=== PATIENT | male | born 1955 | race Caucasian/White ===

== ENCOUNTER 2017-02-26 13:32 | Emergency (ER) | payer OTHER ==
[~2017-02-26] VITALS: Ht 180.3 cm; Wt 104.3 kg
--- NOTE | 2017-02-26 15:20 | ED GI/GU/ABDOMINAL COMPLAINT ---
History of Present Illness General Chief Complaint: Male Genitourinary Problems Stated Complaint: "SWOLLEN, PAINFUL TESTICLES" X2DAYS Source: patient Exam Limitations: no limitations Vital Signs & Intake/Output Vital Signs & Intake/Output Vital Signs Date Time Temp Pulse Resp B/P B/P Pulse O2 O2 Flow FiO2 Mean Ox Delivery Rate 02/26 1612 98.5 94 18 140/67 97 Room Air 02/26 1424 Room Air 02/26 1337 97.8 98 20 126/71 96 Room Air Allergies Coded Allergies: No Known Allergies (02/26/17) Reconcile Medications Augmentin (Augmentin 500-125 Tablet) 500 MG-125 MG TABLET 1 TAB PO TID INFECTION Diclofenac Sodium 75 MG TABLET.DR 1 TAB PO BID PRN PAIN Triage Note: PT C/O PAINFUL SWOLLEN TESTICLES X 2 DAYS. PT DENIES INJURY BUT STATES FEVER AND CHILLS THE DAY BEFORE IT STARTED Triage Nurses Notes Reviewed? yes Onset: Gradual Duration: day(s):, constant, continues in ED, getting worse Quality/Severity: aching, severe, throbbing Radiation: no radiation Activities at Onset: none HPI: Patient presents for evaluation of scrotal pain with a "boil". Symptoms began gradually about 2 days ago, have been constant since onset and continued here in the emergency department. Patient's pain is getting worse. It was exacerbated by a minor trauma yesterday. Past History Travel History Traveled to [place] past 21 day No Medical History Any Pertinent Medical History? see below for history Surgical History Surgical History: non-contributory Psychosocial History What is your primary language Slovak Tobacco Use: Quit >30 days ago ETOH Use: denies use Illicit Drug Use: denies illicit drug use Family History Hx Contributory? No Review of Systems Review of Systems Constitutional: Reports: no symptoms. EENTM: Reports: no symptoms. Respiratory: Reports: no symptoms. Cardiovascular: Reports: no symptoms. GI: Reports: no symptoms. Genitourinary: Reports: see HPI. Musculoskeletal: Reports: no symptoms. Skin: Reports: no symptoms. Neurological/Psychological: Reports: no symptoms. Hematologic/Endocrine: Reports: no symptoms. Immunologic/Allergic: Reports: no symptoms. All Other Systems: Reviewed and Negative Physical Exam Physical Exam Gastrointestinal: see below Comments: Gen.: Well-nourished, well-developed, no acute respiratory distress. Head: Normocephalic, atraumatic. Eyes: Normal inspection bilaterally Ears: Normal inspection bilaterally Nose: Normal inspection Throat/mouth : Moist mucosa Neck: Supple, full range of motion, no goiter Lungs: Quiet respirations Back: Normal range of motion Abdomen: Soft, nontender, nondistended, normal bowel sounds Genitalia: Induration and soft tissue swelling at the base of the scrotum, testicles normal lie, no palpable hernias Extremities: Normal range of motion grossly, equal radial pulses, no cyanosis clubbing or edema Neurologic: Cranial nerves grossly intact, speech is clear Skin: warm and dry Psychiatric: Calm, cooperative, no apparent delusions or hallucinations Core Measures ACS in differential dx? No Severe Sepsis Present: No Septic Shock Present: No Progress Differential Diagnosis: abscess, cellulitis, cyst, phlegmon Plan of Care: Orders Procedure Date/time Status US-TESTICULAR 02/27 1340 Active Diagnostic Imaging: Discussed w/RAD: Ultrasound. Radiology Impression: PATIENT: TIFFANIE HOYOS JR PRESENT AGE: 61 PATIENT ACCOUNT NO: [id number] : 53 LOCATION: [facility] ORDERING PHYSICIAN: OTONIEL CRONIN MD SERVICE DATE: 02/26/17 EXAM TYPE: US - US-TESTICULAR EXAMINATION: US SCROTUM CLINICAL INFORMATION: 2 day history of small palpable and painful lump in the posterior mid scrotum, evolving from a small "pimple". COMPARISON: None TECHNIQUE: A sonogram of the scrotum was performed assessing iqbal-scale appearance and color Doppler flow. Real-time assessment by the reading radiologist was performed. FINDINGS: PALPABLE LUMP: In region of the patient's palpable lump in the posterior midline of the scrotum, a small superficial hypoechoic cystic area is seen. An underlying sinus tract connects from this region to a complex appearing hypoechoic phlegmonous collection in the deeper soft tissues. There is associated skin thickening and edema noted. Mild hyperemia is also seen. RIGHT: Right testicle measures 4.1 x 2.1 x 3.7 cm, volume 28.2 mL. Parenchymal echotexture is normal. No focal testicular parenchymal lesions are visualized. Normal symmetric intratesticular arterial and venous flow is visualized. Right epididymal head is normal in size. There are tiny epididymal cysts. Small right-sided hydrocele is noted. No varicocele is seen. LEFT: Left testicle measures 4.5 x 2.6 x 3.4 cm, volume 22.6 mL. Parenchymal echotexture is normal. No focal testicular parenchymal lesions are visualized. Normal symmetric intratesticular arterial and venous flow is visualized. Left epididymal head is normal in size. There is a small hydrocele. Enlarged venous structures is seen in the left hemiscrotum, consistent with a borderline varicocele. IMPRESSION: 1. The painful and palpable lump corresponds to a phlegmonous collection in the soft tissues of the posterior inferior midline of the scrotum. Faint draining tract is seen extending up to the skin surface. No drainable fluid collection is seen at this point. Close serial clinical follow-up is recommended. Follow-up scrotal ultrasound post treatment is recommended to document resolution of findings. 2. Normal testicles bilaterally. 3. Small right epididymal head cysts. Epididymides bilaterally otherwise unremarkable. 4. Small bilateral hydroceles. 5. Borderline left varicocele. DICTATED BY: FARIDA HINKLE MD DATE/TIME DICTATED:02/26/171439 [employer]:BRETT DATE/TIME TRANSCRIBED:02/26/171439 CONFIDENTIAL, DO NOT COPY WITHOUT APPROPRIATE AUTHORIZATION. <Electronically signed in Other Vendor System> SIGNED BY: FARIDA HINKLE MD 02/26/17 0538 Initial ED EKG: none Departure Departure Disposition: HOME OR SELF CARE Condition: Stable Clinical Impression Primary Impression: Scrotal cyst Referrals: JASS RASHEED,BECKY Gutierrez (PCP/Family) ALLY CALLAWAY MD Additional Instructions: Augmentin as prescribed. I closed the neck as needed for pain. Follow-up with Dr. Callaway on Wednesday for reevaluation. Please notify your primary care physician of this emergency Department visit and treatment plan. Return if any concerns or sudden worsening. Thank you for choosing the [facility] Emergency Department for your care. It was a pleasure to serve you today. Otoniel Cronin M.D. [facility] Departure Forms: Customer Survey General Discharge Information Prescriptions: Current Visit Scripts Augmentin (Augmentin 500-125 Tablet) 1 TAB PO TID #21 TAB Diclofenac Sodium 1 TAB PO BID PRN PAIN #14 TAB
--- NOTE | 2017-02-26 17:04 | ULTRASOUND REPORT ---
EXAMINATION: US SCROTUM CLINICAL INFORMATION: 2 day history of small palpable and painful lump in the posterior mid scrotum, evolving from a small "pimple". COMPARISON: None TECHNIQUE: A sonogram of the scrotum was performed assessing iqbal-scale appearance and color Doppler flow. Real-time assessment by the reading radiologist was performed. FINDINGS: PALPABLE LUMP: In region of the patient's palpable lump in the posterior midline of the scrotum, a small superficial hypoechoic cystic area is seen. An underlying sinus tract connects from this region to a complex appearing hypoechoic phlegmonous collection in the deeper soft tissues. There is associated skin thickening and edema noted. Mild hyperemia is also seen. RIGHT: Right testicle measures 4.1 x 2.1 x 3.7 cm, volume 28.2 mL. Parenchymal echotexture is normal. No focal testicular parenchymal lesions are visualized. Normal symmetric intratesticular arterial and venous flow is visualized. Right epididymal head is normal in size. There are tiny epididymal cysts. Small right-sided hydrocele is noted. No varicocele is seen. LEFT: Left testicle measures 4.5 x 2.6 x 3.4 cm, volume 22.6 mL. Parenchymal echotexture is normal. No focal testicular parenchymal lesions are visualized. Normal symmetric intratesticular arterial and venous flow is visualized. Left epididymal head is normal in size. There is a small hydrocele. Enlarged venous structures is seen in the left hemiscrotum, consistent with a borderline varicocele. IMPRESSION: 1. The painful and palpable lump corresponds to a phlegmonous collection in the soft tissues of the posterior inferior midline of the scrotum. Faint draining tract is seen extending up to the skin surface. No drainable fluid collection is seen at this point. Close serial clinical follow-up is recommended. Follow-up scrotal ultrasound post treatment is recommended to document resolution of findings. 2. Normal testicles bilaterally. 3. Small right epididymal head cysts. Epididymides bilaterally otherwise unremarkable. 4. Small bilateral hydroceles. 5. Borderline left varicocele.
[2017-02-26] MEDS ORDERED: DICLOFENAC SODI75 M2 PO (18:02)
[2017-02-26] MEDS ORDERED: AUGMENTIN 500-1 EACH PO (18:02)
[2017-02-26 18:11] VITALS: BP 141/67
== END 2017-02-26 18:12 ==
LOC: ERH 13:32
DX: L72.9 Follicular cyst of the skin and subcutaneous tissue, unspecified (principal)

== ENCOUNTER 2017-03-01 12:36 | Inpatient (IN) | payer OTHER ==
[~2017-03-01] VITALS: Ht 180.3 cm; Wt 104.3 kg
[~2017-03-01 12:36] MED LIST: AUGMENTIN 500-1 EACH PO; DICLOFENAC SODI75 M2 PO
--- NOTE | 2017-03-01 12:55 | NUR ---
61 Y/O MALE C/O WORSENING SCROTAL SWELLING AND PAIN. STATES HE WAS EVAL'D IN ED FOR SAME A FEW DAYS AGO AND WAS PRESCRIBED ANTIBIOTIC AND PAIN MEDICATION - HAD ULTRASOUND DONE AND WAS ADVISED TO F/U WITH DR DONG BUT STATES DR DONG UNABLE TO SEE PT FOR 2 WEEKS. PT REPORTS "FIRM GROWTH" UNDER SCROTUM WHICH IS GETTING LARGER. DENIES DRAINAGE. DENIES FEVERS
--- NOTE | 2017-03-01 14:10 | ED GI/GU/ABDOMINAL COMPLAINT ---
History of Present Illness General Chief Complaint: Male Genitourinary Problems Stated Complaint: SCROTAL PAIN Source: patient Exam Limitations: no limitations Vital Signs & Intake/Output Vital Signs & Intake/Output Vital Signs Date Time Temp Pulse Resp B/P B/P Pulse O2 O2 Flow FiO2 Mean Ox Delivery Rate 03/01 1839 98.2 87 14 137/74 96 Room Air 03/01 1539 98.6 89 18 146/70 97 03/01 1251 97.7 98 18 148/83 96 Room Air Allergies Coded Allergies: No Known Allergies (02/26/17) Reconcile Medications Augmentin (Augmentin 500-125 Tablet) 500 MG-125 MG TABLET 1 TAB PO TID INFECTION Diclofenac Sodium 75 MG TABLET. 1 TAB PO BID PRN PAIN Triage Note: 61 Y/O MALE C/O WORSENING SCROTAL SWELLING AND PAIN. STATES HE WAS EVAL'D IN ED FOR SAME A FEW DAYS AGO AND WAS PRESCRIBED ANTIBIOTIC AND PAIN MEDICATION - HAD ULTRASOUND DONE AND WAS ADVISED TO F/U WITH DR DONG BUT STATES DR DONG UNABLE TO SEE PT FOR 2 WEEKS. PT REPORTS "FIRM GROWTH" UNDER SCROTUM WHICH IS GETTING LARGER. DENIES DRAINAGE. DENIES FEVERS Triage Nurses Notes Reviewed? yes HPI: Mr. Henning is a 61 yo m w/ PMH of presentin to the ED for scrotal pain and swelling. Patient states he was seen here on Wednesday for similar symptoms and had an ultrasound performed which showed a collection of fluid within the scrotum. He was prescribed antibiotics with Augmentin and discharged home. Patient states he's been taking Augmentin without any missed doses. The past 24 -36 hours, the swelling has worsened in the scrotal area. He also endorses more pain and firmness underneath the scrotum. Patient states he is unable to get comfortable at night to sleep. Patient's last urinary episode was approximately 30 minutes ago. Patient denies any nausea, vomiting, or diarrhea. Pt endorses generalized fatigue. No changes in bowel/ bladder functions. Past History Travel History Traveled to [place] past 21 day No Medical History Any Pertinent Medical History? see below for history Neurological: NONE EENT: NONE Cardiovascular: NONE Respiratory: NONE Gastrointestinal: NONE Hepatic: NONE Renal: NONE Musculoskeletal: NONE Psychiatric: NONE Endocrine: NONE Blood Disorders: NONE Cancer(s): NONE MENTAL HEALTH WORKER/Reproductive: NONE Other Medical Hx: Hx of DM and HTN when patient was >300 lbs. Been off medications for both for over 1yr now. Surgical History Surgical History: non-contributory Psychosocial History What is your primary language Luxembourgish Tobacco Use: Quit >30 days ago Family History Hx Contributory? No Review of Systems Review of Systems Constitutional: Reports: see HPI. EENTM: Reports: no symptoms. Respiratory: Reports: no symptoms. Cardiovascular: Reports: no symptoms. GI: Reports: no symptoms. Genitourinary: Reports: hesitation, pain. Musculoskeletal: Reports: no symptoms. Skin: Reports: erythema, lumps. Neurological/Psychological: Reports: no symptoms. Hematologic/Endocrine: Reports: no symptoms. Immunologic/Allergic: Reports: no symptoms. All Other Systems: Reviewed and Negative Physical Exam Physical Exam General Appearance: well developed/nourished, no apparent distress, alert, awake , mild distress Head: atraumatic, normal appearance Eyes: Bilateral: normal appearance, PERRL, EOMI, normal inspection. Ears, Nose, Throat, Mouth: hearing grossly normal, moist mucous membrane Neck: normal inspection, supple, full range of motion Respiratory: normal breath sounds, chest non-tender, no respiratory distress Cardiovascular: regular rate/rhythm Gastrointestinal: normal bowel sounds, soft, non-tender, distention Male Genitals: bilateral scrotal tenderness w/ significant swelling. Unable to retract skin to expose urethral meatus. Back: normal inspection, normal range of motion Extremities: normal range of motion Neurologic/Psych: no motor/sensory deficits, awake, alert, oriented x 3, normal mood/affect Skin: warm/dry, rash, erythema to scrotum, penis and suprapubic area. induration to underside of scrotum. Core Measures ACS in differential dx? No Severe Sepsis Present: Yes BC x2: Yes Lactic Acid x2: Yes IV ABX Broad Spectrum: Yes NS/LR Started: Yes Septic Shock Present: No Progress Differential Diagnosis: orchitis, prostatitis, testicular torsion, urethritis, UTI/pyelo, necrotizing fasciitis, cellulitis Plan of Care: Orders Procedure Date/time Status Admit to inpatient 03/01 1841 Active EKG 03/01 1838 Active LACTIC ACID 03/01 1712 Complete CULTURE,URINE 03/01 1412 Active BLOOD CULTURE 03/01 1412 Active URINALYSIS 03/01 1412 Complete LACTIC ACID 03/01 1412 Complete COMPREHENSIVE METABOLIC PANEL 03/01 1412 Complete CBC WITHOUT DIFFERENTIAL 03/01 141 Complete Current Medications Sig/Jayce Start time Last Medication Dose Stop Time Status Admin Ceftazidime 1,000 MG Q12 03/01 1412 UNVr 03/01 (Fortaz) 1450 Laboratory Tests 03/01/17 1822: Lactic Acid 1.1 03/01/17 1540: Urine Color STRAW, Urine Clarity CLEAR, Urine pH 6.0, Ur Specific Baldwin 1.010, Urine Protein TRACE H, Urine Ketones NEG, Urine Nitrite NEG, Urine Bilirubin NEG, Urine Urobilinogen 0.2, Ur Leukocyte Esterase NEG, Ur Microscopic SEDIMENT EXAMINED, Urine RBC 1-3, Urine WBC 3-5 H, Ur Epithelial Cells FEW, Urine Bacteria RARE H, Urine Hemoglobin TRACE-INTACT H, Urine Glucose >=1000 H 03/01/17 1425: Anion Gap 14, Estimated GFR > 60, BUN/Creatinine Ratio 22.0, Glucose 454 H, Lactic Acid 2.8 H, Calcium 8.9, Total Bilirubin 0.6, AST 53, ALT 99 H, Alkaline Phosphatase 163 H, Total Protein 6.7, Albumin 3.4 L, Globulin 3.3, Albumin/Globulin Ratio 1.0 L, CBC w Diff NO MAN DIFF REQ, RBC 4.73, MCV 88.2, MCH 29.8, RDW 13.0, MPV 7.9, Gran % 76.7 H, Lymphocytes % 10.0 L, Monocytes % 9.8 H, Eosinophils % 3.2, Basophils % 0.3, Absolute Granulocytes 5.5, Absolute Lymphocytes 0.7 L, Absolute Monocytes 0.7 H, Absolute Eosinophils 0.2, Absolute Basophils 0, PUBS MCHC 33.7 Microbiology 03/01 1540 URINE ROUT: Urine Culture - RECD 03/01 1440 BLOOD: Blood Culture - RECD 03/01 1425 BLOOD: Blood Culture - RECD 61 yo obese male w/ increasing testicular swelling, redness and pain. She was seen here several days ago for similar complaint. It has worsened. Patient seen initially by Dr. Yair Cronin, who reevaluated the patient today as well. Notable swelling and erythema noted to testis. Concern for necrotizing fasciitis. Bloodwork, including blood cultures and lactic acid, were drawn. Pt noted to be hemodynamically stable. Pt also ordered for broad spectrum Abx ( vanc/ceftaz) and surgical service consulted almost immediately. CT abd pelv ordered to assess for spread of infection/extent. Pt seen by surgical PA who agrees with current plan. CT shows "Abnormal bilateral inguinal, retroperitoneal and breanne hepatis lymph nodes. Differential diagnoses includes lymphoma, inflammatory or infectious etiology. There is nonspecific minimal haziness in abdominal wall lateral to left inguinal canal on the very last image. The scrotum is not in the [id number]. Right lower lobe resolving infiltrate versus atelectasis. Mild constipation. Small hypodense lesion lower pole right kidney. It is too small to correctly characterize." Patient seen by Dr. Ren. Plan to take to the operating room for incision and drainage. Patient will also receive a washout. Surgery will assess in OR for possible necrotizing fasciitis by per Dr. Ren, this is likely a scrotal abscess. Pt received broad spectrum Abx in ED. Pre-op EKG ordered. (ZAC RASHEED,JORGE) Diagnostic Imaging: Viewed by Me: CT Scan. Discussed w/RAD: CT Scan. Radiology Impression: Abnormal bilateral inguinal, retroperitoneal and breanne hepatis lymph nodes. Differential diagnoses includes lymphoma, inflammatory or infectious etiology. There is nonspecific minimal haziness in abdominal wall lateral to left inguinal canal on the very last image. The scrotum is not in the [id number]. Right lower lobe resolving infiltrate versus atelectasis. Mild constipation. Small hypodense lesion lower pole right kidney. It is too small to correctly characterize. Initial ED EKG: normal axis, normal intervals, normal p-waves, normal sinus rhythm Departure Departure Time of Disposition: 1803 Disposition: STILL A PATIENT Condition: Stable Clinical Impression Primary Impression: Scrotal abscess Secondary Impressions: Pelvic cellulitis Referrals: JASS RASHEED,BECKY Gutierrez (PCP/Family) Departure Forms: Customer Survey General Discharge Information Admission Note Spoke With: NOMAN RASHEED,LUIS Thurman Documentation of Exam: Documentation of any treatments & extenuating circumstances including Concerns Regarding Discharge (functional status, medication knowledge or non-compliance, living conditions, etc.) that warrant an admission rather than observation: Patient requires inpatient hospitalization as he will be going to the operating room for scrotal abscess drainage. Once in the OR, the patient will also likely have a washout and assess for possible necrotizing fasciitis infection. Pt will need several additional doses of IV Abx.
[2017-03-01 14:38] LABS: ABSOLUTE BASOPHIL COUNT 0 /CUMM (0.0-0.2); ABSOLUTE EOSINOPHIL COUNT 0.2 /CUMM (0.0-0.7); ABSOLUTE GRANULOCYTE CT 5.5 /CUMM (1.4-6.5); ABSOLUTE LYMPH COUNT 0.7 /CUMM (1.2-3.4); ABSOLUTE MONOCYTE COUNT 0.7 /CUMM (0.10-0.60); BASOPHIL % 0.3 % (0.0-2.0); EOSINOPHIL % 3.2 % (0-5); GRANULOCYTE % 76.7 % (42.2-75.2); HEMATOCRIT 41.7 % (42-52); MEAN CORPUSCULAR HGB 29.8 PG (27.0-31.0); MEAN CORPUSCULAR HGB CONC 33.7 G/DL (33.0-37.0); MEAN CORPUSCULAR VOLUME 88.2 FL (80.0-94.0); MEAN PLATELET VOLUME 7.9 FL (7.4-10.4); PLATELET COUNT 243 /CUMM (130-400); RED BLOOD CELL CT 4.73 /CUMM (4.70-6.10); WHITE BLOOD CELL COUNT 7.2 /CUMM (4.8-10.8)
--- NOTE | 2017-03-01 14:41 | NUR ---
IV EST #20 2ND IV SITE EST #20 [facility]S DRAWN AND SENT TO THE LAB [facility]
--- NOTE | 2017-03-01 14:51 | NUR ---
2 LINES EST. NS INFUSING, FORTAZ ADMINISTERED (SEE MAR)
--- NOTE | 2017-03-01 17:13 | CT SCAN REPORT ---
EXAMINATION: CT ABDOMEN AND PELVIS WITH CONTRAST CLINICAL INFORMATION: Swelling, pain scrotum. COMPARISON: None TECHNIQUE: Multidetector volumetric imaging was performed of the abdomen and pelvis before and after the IV administration of 95 mL of Optiray 320 intravenous contrast. Sagittal and coronal reformatted images were obtained on the technologist's workstation. DLP: 1107 mGy-cm FINDINGS: LUNG BASES: There is patchy airspace density right lung bases suggestive of infiltrate and/or atelectasis. The left lung base is clear. The heart size is normal. There is moderate elevation of right hemidiaphragm. LIVER, GALLBLADDER, AND BILIARY TREE: The liver is normal in size, shape, and attenuation. No focal hepatic lesion or biliary ductal dilatation is present. The gallbladder is unremarkable with no evidence of radiopaque gallstones, gallbladder wall thickening, or obvious pericholecystic inflammatory changes. PANCREAS: Unremarkable. SPLEEN: Unremarkable. ADRENAL GLANDS: Unremarkable. KIDNEYS AND URETERS: The kidneys are normal in size, shape, and attenuation. No hydronephrosis, hydroureter, or calculi seen. No perinephric stranding. There is a 7 mm nonenhancing hypodense lesion lower pole right kidney probable cyst. No additional lesions seen. BLADDER: Unremarkable. GASTROINTESTINAL TRACT: There is scattered stool seen throughout the colon without significant distention. The small bowel loops our normal caliber. No obstruction, free air or free fluid seen. ABDOMINAL WALL: A small umbilical hernia intraperitoneal fat is noted. LYMPH NODES: There are small scattered retroperitoneal lymph nodes with largest preaortic lymph node measuring 1.5 cm on image 51, series 2. Several additional lymph nodes are seen in the breanne hepatis measuring 3.3 cm image 38, series 2. VASCULAR: Unremarkable. PELVIC VISCERA: There is no free air or free fluid. The prostate gland is normal size. There is no pelvic mass. There are abnormal bilateral inguinal lymph nodes with the largest left inguinal lymph node measuring 2.10 cm image 106, series 2. There is nonspecific haziness lateral to left inguinal canal on the very last image of unknown etiology. OSSEOUS STRUCTURES: Grade 1 anterolisthesis L5 over S1 with degenerative disc changes and vacuum disc phenomena at L4-L5 and L5-S1 disc level. There is mild spondylosis as well. No lytic or sclerotic process seen. IMPRESSION: Abnormal bilateral inguinal, retroperitoneal and breanne hepatis lymph nodes. Differential diagnoses includes lymphoma, inflammatory or infectious etiology. There is nonspecific minimal haziness in abdominal wall lateral to left inguinal canal on the very last image. The scrotum is not in the [id number]. Right lower lobe resolving infiltrate versus atelectasis. Mild constipation. Small hypodense lesion lower pole right kidney. It is too small to correctly characterize.
--- NOTE | 2017-03-01 18:02 | NUR ---
PT ATE A PEACE OF CHEESE AND A CUP OF WATER.. SURGICAL PA AWARE
--- NOTE | 2017-03-01 18:42 | History & Physical Pre-Op ---
General Information and HPI History of Present Illness: Patient presents back to the ER four days after initial evaluation. Found to have small scrotal abscess on ultrasound. He was given augmentin and plan for eval by urology in offcice. Pain became much worse and he represents with worsening scrotal edema. Difficulty urination due to edema. 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 Been off medications for both for over 1yr now. Surgical History Pertinent Surgical History: none Past Family/Social History Psychosocial History Smoking Status: Former Smoker (quit 35yrs ago) ETOH Use: occasional use Review of Systems Review of Systems: no chest pain. no dyspnea, no abdominal pain or n/v/d. difficulty urinary voiding. remainder 12 neg. Exam & Diagnostic Data Last 24 Hrs of Vital Signs/I&O Vital Signs Date Time Temp Pulse Resp B/P B/P Pulse O2 O2 Flow FiO2 Mean Ox Delivery Rate 03/01 1539 98.6 89 18 146/70 97 03/01 1251 97.7 98 18 148/83 96 Room Air Intake & Output 03/01 1600 03/01 0800 03/01 0000 Intake Total 1000 Output Total 300 Balance 700 Intake, IV 1000 Output, Urine 300 Patient 230 lb Weight Weight Reported by Patient Measurement Method Physical Exam: gen; obese. uncomfortle.l no distress heent; anicteric, mmm, eoi chest; rrr, clear bilaterally abdomen, obese, soft, nt, reducible umbilical hernia. scrotum. severe edema and induration extending to bilateral inguinal canal. central fluctuance Last 24 Hrs of Labs/Eligio: Laboratory Tests 03/01/17 1822: Lactic Acid Pending 03/01/17 1540: Urine Color STRAW, Urine Clarity CLEAR, Urine pH 6.0, Ur Specific [place] 1.010, Urine Protein TRACE H, Urine Ketones NEG, Urine Nitrite NEG, Urine Bilirubin NEG, Urine Urobilinogen 0.2, Ur Leukocyte Esterase NEG, Ur Microscopic SEDIMENT EXAMINED, Urine RBC 1-3, Urine WBC 3-5 H, Ur Epithelial Cells FEW, Urine Bacteria RARE H, Urine Hemoglobin TRACE-INTACT H, Urine Glucose >=1000 H 03/01/17 1425: Anion Gap 14, Estimated GFR > 60, BUN/Creatinine Ratio 22.0, Glucose 454 H, Lactic Acid 2.8 H, Calcium 8.9, Total Bilirubin 0.6, AST 53, ALT 99 H, Alkaline Phosphatase 163 H, Total Protein 6.7, Albumin 3.4 L, Globulin 3.3, Albumin/Globulin Ratio 1.0 L, CBC w Diff NO MAN DIFF REQ, RBC 4.73, MCV 88.2, MCH 29.8, RDW 13.0, MPV 7.9, Gran % 76.7 H, Lymphocytes % 10.0 L, Monocytes % 9.8 H, Eosinophils % 3.2, Basophils % 0.3, Absolute Granulocytes 5.5, Absolute Lymphocytes 0.7 L, Absolute Monocytes 0.7 H, Absolute Eosinophils 0.2, Absolute Basophils 0, PUBS MCHC 33.7 Microbiology 03/01 1540 URINE ROUT: Urine Culture - RECD 03/01 1440 BLOOD: Blood Culture - RECD 03/01 1425 BLOOD: Blood Culture - RECD Assessment/Plan Assessment/Plan: Scrotal absces. plan iv abx and emergent incision and drainage. uncontrolled dm secondary to noncompliance with medications and active infection. sliding scale. medical consultation. previously htn no off meds per his own discretion. restart per medicine. As Ranked By This Provider Problem List: 1. Scrotal abscess 2. Diabetes mellitus Copies To: JASS RASHEED,BECKY Gutierrez
--- NOTE | 2017-03-01 20:19 | Operative Report ---
Operative/Inv Procedure Report Surgery Date: 03/01/17 Name of Procedure: Incision and drainage of scrotal abscess Pre-Operative Diagnosis: Scrotal abscess Post-Operative Diagnosis: Same Estimated Blood Loss: scant Surgeon/Paper Sales Representative: Terrance Ren M.D. Anesthesia: general endotracheal tube Specimens: Purulence for culture Microbiology: Urine for culture Operative Indication: See H&P Operative/Procedure Note Note: After consent is brought to the operating room laid supine. Gen. anesthesia was obtained and his scrotum and perineum were prepped and draped. The skin overlying the fluctuance was incised sharply. We carried dissection down to the scrotal tissues sharply. We encountered a large amount of purulence, a portion of which was sent for culture. The wound was then opened larger such that digital evaluation could be undertaken. There is induration that extended to both inguinal canals. Explored this manually and there was no significant purulence or necrotic tissue in that region. There is a small amount of necrosis centrally over the incision site which was excised with cautery dissection. Hemostasis achieved with cautery. The scrotal tissues were then pulse lavaged with saline. The wound was packed with iodoform-soaked Nu Gauze. A sterile dressing was applied. CC: JASS RASHEED,BECKY Gutierrez
--- NOTE | 2017-03-01 20:59 | Admission Core Measures ---
Admission Lab Results I reviewed the following labs: Laboratory Tests 03/01 03/01 1822 1540 Chemistry Lactic Acid (0.7 - 2.1 mmol/L) 1.1 Urines Urine Color (YEL,AMB,STR) STRAW Urine Clarity (CLEAR) CLEAR Urine pH (5.0 - 8.0) 6.0 Ur Specific [place] (1.001 - 1.035) 1.010 Urine Protein (NEG,<30 MG/DL) TRACE H Urine Ketones (NEG) NEG Urine Nitrite (NEG) NEG Urine Bilirubin (NEG) NEG Urine Urobilinogen (0.1 - 1.0 EU/dl) 0.2 Ur Leukocyte Esterase (NEG) NEG Ur Microscopic SEDIMENT EXAMINED Urine RBC (0 - 5 /HPF) 1-3 Urine WBC (0 - 2 /HPF) 3-5 H Ur Epithelial Cells (NONE,FEW) FEW Urine Bacteria (NEG/NONE) RARE H Urine Hemoglobin (NEG) TRACE-INTACT H Urine Glucose (N MG/DL) >=1000 H 03/01 1425 Chemistry Sodium (137 - 145 mmol/L) 136 L Potassium (3.5 - 5.1 mmol/L) 4.3 Chloride (98 - 107 mmol/L) 100 Carbon Dioxide (22 - 30 mmol/L) 23 Anion Gap (5 - 16) 14 BUN (9 - 20 mg/dL) 11 Creatinine (0.7 - 1.2 mg/dL) 0.5 L Estimated GFR (>60 ml/min) > 60 BUN/Creatinine Ratio (7 - 25 %) 22.0 Glucose (65 - 99 mg/dL) 454 H Lactic Acid (0.7 - 2.1 mmol/L) 2.8 H Calcium (8.4 - 10.2 mg/dL) 8.9 Total Bilirubin (0.2 - 1.3 mg/dL) 0.6 AST (17 - 59 U/L) 53 ALT (21 - 72 U/L) 99 H Alkaline Phosphatase (< 127 U/L) 163 H Total Protein (6.3 - 8.2 g/dL) 6.7 Albumin (3.5 - 5.0 g/dL) 3.4 L Globulin (1.9 - 4.2 gm/dL) 3.3 Albumin/Globulin Ratio (1.1 - 2.2 %) 1.0 L Hematology CBC w Diff NO MAN DIFF REQ WBC (4.8 - 10.8 /CUMM) 7.2 RBC (4.70 - 6.10 /CUMM) 4.73 Hgb (14.0 - 18.0 G/DL) 14.1 Hct (42 - 52 %) 41.7 L MCV (80.0 - 94.0 FL) 88.2 MCH (27.0 - 31.0 PG) 29.8 RDW (11.5 - 14.5 %) 13.0 Plt Count (130 - 400 /CUMM) 243 MPV (7.4 - 10.4 FL) 7.9 Gran % (42.2 - 75.2 %) 76.7 H Lymphocytes % (20.5 - 51.1 %) 10.0 L Monocytes % (1.7 - 9.3 %) 9.8 H Eosinophils % (0 - 5 %) 3.2 Basophils % (0.0 - 2.0 %) 0.3 Absolute Granulocytes (1.4 - 6.5 /CUMM) 5.5 Absolute Lymphocytes (1.2 - 3.4 /CUMM) 0.7 L Absolute Monocytes (0.10 - 0.60 /CUMM) 0.7 H Absolute Eosinophils (0.0 - 0.7 /CUMM) 0.2 Absolute Basophils (0.0 - 0.2 /CUMM) 0 PUBS MCHC (33.0 - 37.0 G/DL) 33.7 Admission Meds I reviewed the following Meds: Current Medications Sig/Jayce Start time Last Medication Dose Stop Time Status Admin Acetaminophen 650 MG Q6PRN PRN 03/01 2100 UNVr (Tylenol) Ampicillin Sodium/ 1,500 MG Q6 03/01 2359 UNVr Sulbactam Sodium (Unasyn) Sodium Chloride 100 ML (Normal Saline 0.9%) Dextrose/Sodium 1,000 ML .Q10H 03/01 2100 UNVr Chloride (D5-Normal Saline) Docusate Sodium 100 MG BID 03/01 2200 UNVr (Colace) Heparin Sodium 5,000 UNIT Q8 03/02 0600 UNVr (Porcine) Morphine Sulfate 2 MG Q4P PRN 03/01 2100 UNVr (Morphine) Ondansetron HCl 4 MG Q8P PRN 03/01 2100 UNVr (Zofran) Oxycodone/ 1 TAB Q6P PRN 06/05 2100 UNVr Acetaminophen (Percocet) Oxycodone/ 2 TAB Q6P PRN 03/01 2100 UNVr Acetaminophen (Percocet) Acute Coronary Syndrome Inclusion Criteria ACS Diagnosis No Inpatient Core Measures LDL Reminder: If No, please order W/I first 24hr of stay Congestive Heart Failure Inclusion Criteria CHF Diagnosis No Cerebrovascular accident Inclusion Criteria CVA/TIA Diagnosis No Inpatient Core Measures Bedside Swallow Eval Reminder: If BSE failed, place ST order Antithrombotic Reminder: Order Antithrombotic Medication by end of day 2 Antithrombotic Reminder: Document Reason Antithrombotic Not ordered by end of day 2 AFIB/Flutter Reminder: If Present, add to problem list AFIB/Flutter Reminder: Order Anticoag Medication for pts with AFIB/Flutter Atherosclerosis Reminder: If Present, add to problem list LDL Reminder: If No, please order W/I first 24hr of stay PT Order Reminder: If No, please order Venous thromboembolism Inpatient Core Measures VTE Risk Factors: Surgery No Mech VTE prophylaxis d/t No contraindications No VTE Pharm Prophylaxis d/t No contraindications Inclusion Criteria - Per Current guidelines, there needs to be overlap - treatment for the first 5 days of Warfarin therapy. - Parenteral Anticoagulation (IV or SC) needs to be - given along with Warfarin therapy. VTE Diagnosis No VTE Type NONE VTE Confirmed by (Test) NONE Problem List As ranked by this Provider includes Assessment & Plan 1. Scrotal abscess HOME MEDS Home Med List Augmentin (Augmentin 500-125 Tablet) 500 MG-125 MG TABLET 1 TAB PO TID INFECTION Diclofenac Sodium 75 MG TABLET.DR 1 TAB PO BID PRN PAIN
--- NOTE | 2017-03-01 21:50 | PN- General Surgery ---
Subjective Subjective: POSTOP CHECK feeling well, pain improved. no cp/sob/n/v +uo via gilbert Objective Vital Signs and I&Os Vital Signs Date Time Temp Pulse Resp B/P B/P Pulse O2 O2 Flow FiO2 Mean Ox Delivery Rate 03/01 1839 98.2 87 14 137/74 96 Room Air 03/01 1539 98.6 89 18 146/70 97 06/ 1251 97.7 98 18 148/83 96 Room Air Intake & Output 03/01 1600 03/01 0800 03/01 0000 02/28 1600 02/28 0800 02/28 0000 Intake Total 1000 Output Total 300 Balance 700 Intake, IV 1000 Output, Urine 300 Patient 230 lb Weight Weight Reported by Patient Measurement Method Physical Exam: GEN: NAD CARD: s1s2 RRR PULM: CTAB ABD: soft, nt, nd EXT: calves soft nt bl GROIN/INCISION: wound packed, dressing dry, +scrotal/perineal edema and tenderness Current Medications: Current Medications Sig/Jayce Start time Last Medication Dose Route Stop Time Status Admin Acetaminophen 650 MG Q6PRN PRN 03/01 2100 AC PO Ampicillin Sodium/ 1,500 MG Q6 03/01 2359 AC Sulbactam Sodium IV Sodium Chloride 100 ML Ceftazidime 0 .STK-MED ONE 03/01 1446 DC .ROUTE Ceftazidime 1,000 MG Q12 03/01 1412 DC 03/01 IV 1450 Dextrose/Sodium 1,000 ML .Q10H 03/01 2100 AC Chloride IV Docusate Sodium 100 MG BID 03/01 2200 AC PO Heparin Sodium 5,000 UNIT Q8 03/02 0600 AC (Porcine) SC Insulin Human Regular 0 TIDAC/HS 03/01 2100 AC SC Morphine Sulfate 2 MG Q4P PRN 03/01 2100 AC IV Ondansetron HCl 4 MG Q8P PRN 03/01 2100 AC IV Oxycodone/ 1 TAB Q6P PRN 03/01 2100 AC Acetaminophen PO Oxycodone/ 2 TAB Q6P PRN 03/01 2100 AC Acetaminophen PO Sodium Chloride 1,000 ML BOLUS ONE 03/01 1630 DC 06/ IV 03/01 1729 1739 Sodium Chloride 1,000 ML BOLUS ONE 03/01 1415 DC 06/ IV 03/01 1514 1450 Vancomycin HCl 0 .STK-MED ONE 03/01 1446 DC .ROUTE Vancomycin HCl 1,000 MG ONCE ONE 03/01 1415 DC 03/01 Sodium Chloride 250 ML IV 03/01 3606 1503 Assessment/Plan Assessment/Plan A: POD0 sp I&D perineal/scrotal abscess, stable, with improved pain postop. P: unasyn am labs keep gilbert- scrotal/penile edema due to infection packing change in am vs POD2 ada diet, fs, riss medicine consult in am, sees Dr. Sykes, not on meds for htn and dm Core Measures/Miscellaneous Gilbert Catheter Date In: 03/01/17 Still Needed? Yes Venous Thromboembolism VTE Risk Factors: Surgery VTE Contraindications: No Contraindications VTE Diagnosis: No VTE Type: NONE VTE Confirmed by (Test): NONE Beta Noel Is Beta Noel a Home Med? No Antibiotics Is Patient on Antibiotics? Yes If Yes: infection
[2017-03-01 23:00] VITALS: BP 122/62
[2017-03-02 04:58] VITALS: BP 112/52
[2017-03-02 07:49] LABS: ABSOLUTE BASOPHIL COUNT 0 /CUMM (0.0-0.2); ABSOLUTE EOSINOPHIL COUNT 0.2 /CUMM (0.0-0.7); ABSOLUTE LYMPH COUNT 0.8 /CUMM (1.2-3.4); ABSOLUTE MONOCYTE COUNT 0.6 /CUMM (0.10-0.60); BASOPHIL % 0.3 % (0.0-2.0); MEAN CORPUSCULAR HGB 29.7 PG (27.0-31.0)
[2017-03-02 08:09] LABS: EOSINOPHIL % 3.4 % (0-5); GRANULOCYTE % 70.9 % (42.2-75.2); MEAN CORPUSCULAR HGB CONC 33.8 G/DL (33.0-37.0); MEAN CORPUSCULAR VOLUME 87.9 FL (80.0-94.0); MEAN PLATELET VOLUME 8.1 FL (7.4-10.4); PLATELET COUNT 206 /CUMM (130-400); RBC DISTRIBUTION WIDTH 13.1 % (11.5-14.5); RED BLOOD CELL CT 4.16 /CUMM (4.70-6.10); WHITE BLOOD CELL COUNT 5.7 /CUMM (4.8-10.8)
[2017-03-02 08:15] LABS: HEMATOCRIT 36.6 % (42-52)
[2017-03-02 08:34] VITALS: BP 140/62
--- NOTE | 2017-03-02 10:02 | PN- General Surgery ---
Surgical Brief Attending Note Brief Attending Note: RECOVERING WELL AFTER DRAINAGE SCROTAL ABSCESS. CULTURES SHOW STREP. PLAN D/C IVF. DIABETIC DIET. CONTINUE IV ABX. DAILY DRESSING CHANGE. ANTICIPATE D/C TOMORROW.
[2017-03-02 15:30] VITALS: BP 118/78
[2017-03-02] MEDS ORDERED: PERCOCET 5-3251 EACH PO (16:00)
--- NOTE | 2017-03-02 16:04 | Patient Discharge Instructions ---
Discharge Instructions General Discharge Information You were seen/treated for: Scrotal pain related to infection You had these procedures: I&D scrotum Watch for these problems: Increasing pain despite the use of pain medication. Increasing redness, warmth, or swelling. Increasing drainage from surgical site. Inability to urinate. Persistent nausea and vomitting. Fever greater than 101.5 degrees. Daily wet to dry dressings: Yes Special Instructions: Keep wound clean and dry. Daily dressing changes recommended. Complete antibiotics as directed. Follow up with Primary Care doctor to help manage blood glucose levels. Diet Continue normal diet: Yes Recommended Diet: Diabetic Activity Full Activity/No Limits: No Activity Self Limited: Yes Pounds, do NOT lift more than: 10 Acute Coronary Syndrome Inclusion Criteria At DC or during hospital stay patient has or had the following: ACS DIAGNOSIS No Discharge Core Measures Meds if any: Prescribed or Continued at Discharge Meds if any: NOT Prescribed or Continued at Discharge Congestive Heart Failure Inclusion Criteria At DC or during hospital stay patient has or had the following: CHF DIAGNOSIS No Discharge Core Measures Meds if any: Prescribed or Continued at Discharge Meds if any: NOT Prescribed or Continued at Discharge Cerebrovascular accident Inclusion Criteria At DC or during hospital stay patient has or had the following: CVA/TIA Diagnosis No Discharge Core Measures Meds if any: Prescribed or Continued at Discharge Meds if any: NOT Prescribed or Continued at Discharge Venous thromboembolism Inclusion Criteria VTE Diagnosis No VTE Type NONE VTE Confirmed by (Test) NONE Discharge Core Measures - Per Current guidelines, there needs to be overlap - treatment for the first 5 days of Warfarin therapy. - If discharged on Warfarin prior to 5 days of - overlap therapy, the patient will need to be - assessed for post discharge needs including - *Post discharge parental anticoagulation - *Warfarin and/or parental anticoagulation education - *Follow up date to check INR post discharge At least 5 days overlap therapy as Inpatient No Meds if any: Prescribed or Continued at Discharge Note: Overlap Therapy is Warfarin and Anticoagulant Meds if any: NOT Prescribed or Continued at Discharge
--- NOTE | 2017-03-02 19:02 | Cons- Pulmonary ---
General Information and HPI Consulting Request Date of Consult: 03/02/17 Requested By: surg History of Present Illness: Patient presents back to the ER four days after initial evaluation. Found to have small scrotal abscess on ultrasound. He was given augmentin and plan for eval by urology in offcice. Pain became much worse and he represents with worsening scrotal edema. Difficulty urination due to edema. S/p I and D Now has sig high sugars Pt non compliant NOt on meds regularly for dm ROS loss of wt Is grieving as his son suddenly recently Allergies/Medications Allergies: Coded Allergies: No Known Allergies (02/26/17) Home Med List: Augmentin (Augmentin 500-125 Tablet) 500 MG-125 MG TABLET 1 TAB PO TID INFECTION Diclofenac Sodium 75 MG TABLET.DR 1 TAB PO BID PRN PAIN Oxycodone HCl/Acetaminophen (Percocet 5-325 MG Tablet) 5 MG-325 MG TABLET 1-2 TAB PO Q4-6H PRN PAIN Review of Systems Review of Systems Constitutional: Reports: see HPI, chills. 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 Been off medications for both for over 1yr now. Surgical History Surgical History: 1 Psychosocial History Where Do You Live? Home Services at Home: None Smoking Status: Former Smoker (quit 35yrs ago) ETOH Use: occasional use Exam & Diagnostic Data Last 24 Hrs of Vital Signs/I&O Vital Signs Date Time Temp Pulse Resp B/P B/P Pulse O2 O2 Flow FiO2 Mean Ox Delivery Rate 03/02 1530 97.8 81 16 118/78 93 Room Air 03/02 0834 97.4 79 18 140/62 94 Room Air 03/02 0458 98.0 81 16 112/52 94 Room Air / 2300 97.4 71 16 122/62 93 Room Air Intake & Output 03/02 1600 03/02 0800 06/ 0000 Intake Total 1080 1040 Output Total 650 850 Balance 430 190 Intake, IV 600 800 Intake, Oral 480 240 Output, Urine 650 850 Last 48 Hrs of Labs/Eligio: Laboratory Tests 03/02/17 1310: Hemoglobin A1c 11.9 H 03/02/17 0630: Anion Gap 7, Estimated GFR > 60, BUN/Creatinine Ratio 12.0, CBC w Diff NO MAN DIFF REQ, RBC 4.16 L, MCV 87.9, MCH 29.7, RDW 13.1, MPV 8.1, Gran % 70.9, Lymphocytes % 14.0 L, Monocytes % 11.4 H, Eosinophils % 3.4, Basophils % 0.3, Absolute Granulocytes 4.0, Absolute Lymphocytes 0.8 L, Absolute Monocytes 0.6, Absolute Eosinophils 0.2, Absolute Basophils 0, PUBS MCHC 33.8 03/01/17 1822: Lactic Acid 1.1 03/01/17 1540: Urine Color STRAW, Urine Clarity CLEAR, Urine pH 6.0, Ur Specific [place] 1.010, Urine Protein TRACE H, Urine Ketones NEG, Urine Nitrite NEG, Urine Bilirubin NEG, Urine Urobilinogen 0.2, Ur Leukocyte Esterase NEG, Ur Microscopic SEDIMENT EXAMINED, Urine RBC 1-3, Urine WBC 3-5 H, Ur Epithelial Cells FEW, Urine Bacteria RARE H, Urine Hemoglobin TRACE-INTACT H, Urine Glucose >=1000 H 03/01/17 1425: Anion Gap 14, Estimated GFR > 60, BUN/Creatinine Ratio 22.0, Glucose 454 H, Lactic Acid 2.8 H, Calcium 8.9, Total Bilirubin 0.6, AST 53, ALT 99 H, Alkaline Phosphatase 163 H, Total Protein 6.7, Albumin 3.4 L, Globulin 3.3, Albumin/Globulin Ratio 1.0 L, CBC w Diff NO MAN DIFF REQ, RBC 4.73, MCV 88.2, MCH 29.8, RDW 13.0, MPV 7.9, Gran % 76.7 H, Lymphocytes % 10.0 L, Monocytes % 9.8 H, Eosinophils % 3.2, Basophils % 0.3, Absolute Granulocytes 5.5, Absolute Lymphocytes 0.7 L, Absolute Monocytes 0.7 H, Absolute Eosinophils 0.2, Absolute Basophils 0, PUBS MCHC 33.7 Assessment/Plan Impression/Plan: Physical Exam: gen; obese. uncomfortle.l no distress heent; anicteric, mmm, eoi chest; rrr, clear bilaterally abdomen, obese, soft, nt, reducible umbilical hernia. scrotum. Dressing noted IMPRESSION PT with morbid obesity with scrotal abcess s/p I and d with previous history of DM non compliant has DM Uncontrolled Obesity Scrotal abscess s/p I and D with strep REC Start metformin 875 bid Start Jardiance 10 mg po qd Pt needs a script for glucometer, strips and lancets and to check glucose bid Follow up with me in few days Pt to call me upon dc if his sugars are higher than 200 consistantly and then will give him prn shortacting insulin Strict diet Compliance stressed Diabetic diet Consult Acknowledgment - Thank you for your consult request.
[2017-03-03 00:04] VITALS: BP 154/88
[2017-03-03 07:50] VITALS: BP 140/64
--- NOTE | 2017-03-03 07:54 | PN- General Surgery ---
See Addendum Subjective Subjective: +pain & swelling, but improvnig. +voids no BM. belching, c/o chest/back pain relieved after belching, no n/v. +oob Objective Vital Signs and I&Os Vital Signs Date Time Temp Pulse Resp B/P B/P Pulse O2 O2 Flow FiO2 Mean Ox Delivery Rate 03/03 0004 99.0 84 16 154/88 95 Room Air 03/02 1530 97.8 81 16 118/78 93 Room Air 03/02 0834 97.4 79 18 140/62 94 Room Air Intake & Output 03/03 0800 03/03 0000 03/02 1600 03/02 0800 03/02 0000 03/01 1600 Intake Total 370 1080 1040 1000 Output Total 1100 650 850 300 Balance -730 430 190 700 Intake, IV 130 364 097 7863 Intake, Oral 240 480 240 Output, Urine 1100 650 850 300 Patient 230 lb Weight Weight Reported by Patient Measurement Method Physical Exam: GEN: NAD CARD: s1s2 RRR PULM: CTAB ABD: soft, nt, nd EXT: calves soft nt bl GROIN/INCISION: wound packed, dressing dry, +scrotal/perineal edema and tenderness Current Medications: Current Medications Sig/Jayce Start time Last Medication Dose Route Stop Time Status Admin Acetaminophen 650 MG Q6PRN PRN 03/01 2100 AC PO Ampicillin Sodium/ 1,500 MG Q6 03/01 2359 03/03 Sulbactam Sodium IV 0558 Sodium Chloride 100 ML Dextrose/Sodium 1,000 ML .Q10H 03/01 2100 DC 03/02 Chloride IV 0947 Docusate Sodium 100 MG BID 03/01 2200 AC 03/02 PO 2206 Heparin Sodium 5,000 UNIT Q8 03/02 0600 03/03 (Porcine) NC 0449 Insulin Human Regular 6 UNITS .STK-MED ONE 03/02 1215 DC IV 03/02 1216 Insulin Human Regular 6 UNITS .STK-MED ONE 03/02 0834 DC IV 03/02 0835 Insulin Human Regular 0 TIDAC/HS 03/01 2100 03/02 SC 2206 Metformin HCl 850 MG 0800,1700 /07 0800 AC PO Morphine Sulfate 2 MG Q4P PRN 03/01 2100 AC 03/01 IV 2350 Ondansetron HCl 4 MG Q8P PRN 06/2099 AC IV Oxycodone/ 1 TAB Q6P PRN 03/01 2100 AC 03/02 Acetaminophen PO 1624 Oxycodone/ 2 TAB Q6P PRN 03/01 2100 AC 03/03 Acetaminophen PO 0449 Patient Medication 1 ED .STK-MED ONE 03/02 1343 [facility] ED 03/02 1344 Polyethylene Glycol 17 GM DAILY 03/03 1000 AC PO Sitagliptin Phosphate 50 MG DAILY 03/03 1000 AC PO Results Last 48 Hours of Labs: Laboratory Tests 03/02 03/02 03/01 1310 0630 1822 Chemistry Sodium (137 - 145 mmol/L) 134 L Potassium (3.5 - 5.1 mmol/L) 4.1 Chloride (98 - 107 mmol/L) 101 Carbon Dioxide (22 - 30 mmol/L) 26 Anion Gap (5 - 16) 7 BUN (9 - 20 mg/dL) 6 L Creatinine (0.7 - 1.2 mg/dL) 0.5 L Estimated GFR (>60 ml/min) > 60 BUN/Creatinine Ratio (7 - 25 %) 12.0 Hemoglobin A1c (4.2 - 5.8 %) 11.9 H Lactic Acid (0.7 - 2.1 mmol/L) 1.1 Hematology CBC w Diff NO MAN DIFF REQ WBC (4.8 - 10.8 /CUMM) 5.7 RBC (4.70 - 6.10 /CUMM) 4.16 L Hgb (14.0 - 18.0 G/DL) 12.4 L Hct (42 - 52 %) 36.6 L MCV (80.0 - 94.0 FL) 87.9 MCH (27.0 - 31.0 PG) 29.7 RDW (11.5 - 14.5 %) 13.1 Plt Count (130 - 400 /CUMM) 206 MPV (7.4 - 10.4 FL) 8.1 Gran % (42.2 - 75.2 %) 70.9 Lymphocytes % (20.5 - 51.1 %) 14.0 L Monocytes % (1.7 - 9.3 %) 11.4 H Eosinophils % (0 - 5 %) 3.4 Basophils % (0.0 - 2.0 %) 0.3 Absolute Granulocytes (1.4 - 6.5 /CUMM) 4.0 Absolute Lymphocytes (1.2 - 3.4 /CUMM) 0.8 L Absolute Monocytes (0.10 - 0.60 /CUMM) 0.6 Absolute Eosinophils (0.0 - 0.7 /CUMM) 0.2 Absolute Basophils (0.0 - 0.2 /CUMM) 0 PUBS MCHC (33.0 - 37.0 G/DL) 33.8 06/05 06/05 1540 1425 Chemistry Sodium (137 - 145 mmol/L) 136 L Potassium (3.5 - 5.1 mmol/L) 4.3 Chloride (98 - 107 mmol/L) 100 Carbon Dioxide (22 - 30 mmol/L) 23 Anion Gap (5 - 16) 14 BUN (9 - 20 mg/dL) 11 Creatinine (0.7 - 1.2 mg/dL) 0.5 L Estimated GFR (>60 ml/min) > 60 BUN/Creatinine Ratio (7 - 25 %) 22.0 Glucose (65 - 99 mg/dL) 454 H Lactic Acid (0.7 - 2.1 mmol/L) 2.8 H Calcium (8.4 - 10.2 mg/dL) 8.9 Total Bilirubin (0.2 - 1.3 mg/dL) 0.6 AST (17 - 59 U/L) 53 ALT (21 - 72 U/L) 99 H Alkaline Phosphatase (< 127 U/L) 163 H Total Protein (6.3 - 8.2 g/dL) 6.7 Albumin (3.5 - 5.0 g/dL) 3.4 L Globulin (1.9 - 4.2 gm/dL) 3.3 Albumin/Globulin Ratio (1.1 - 2.2 %) 1.0 L Hematology CBC w Diff NO MAN DIFF REQ WBC (4.8 - 10.8 /CUMM) 7.2 RBC (4.70 - 6.10 /CUMM) 4.73 Hgb (14.0 - 18.0 G/DL) 14.1 Hct (42 - 52 %) 41.7 L MCV (80.0 - 94.0 FL) 88.2 MCH (27.0 - 31.0 PG) 29.8 RDW (11.5 - 14.5 %) 13.0 Plt Count (130 - 400 /CUMM) 243 MPV (7.4 - 10.4 FL) 7.9 Gran % (42.2 - 75.2 %) 76.7 H Lymphocytes % (20.5 - 51.1 %) 10.0 L Monocytes % (1.7 - 9.3 %) 9.8 H Eosinophils % (0 - 5 %) 3.2 Basophils % (0.0 - 2.0 %) 0.3 Absolute Granulocytes (1.4 - 6.5 /CUMM) 5.5 Absolute Lymphocytes (1.2 - 3.4 /CUMM) 0.7 L Absolute Monocytes (0.10 - 0.60 /CUMM) 0.7 H Absolute Eosinophils (0.0 - 0.7 /CUMM) 0.2 Absolute Basophils (0.0 - 0.2 /CUMM) 0 PUBS MCHC (33.0 - 37.0 G/DL) 33.7 Urines Urine Color (YEL,AMB,STR) STRAW Urine Clarity (CLEAR) CLEAR Urine pH (5.0 - 8.0) 6.0 Ur Specific [place] (1.001 - 1.035) 1.010 Urine Protein (NEG,<30 MG/DL) TRACE H Urine Ketones (NEG) NEG Urine Nitrite (NEG) NEG Urine Bilirubin (NEG) NEG Urine Urobilinogen (0.1 - 1.0 EU/dl) 0.2 Ur Leukocyte Esterase (NEG) NEG Ur Microscopic SEDIMENT EXAMINED Urine RBC (0 - 5 /HPF) 1-3 Urine WBC (0 - 2 /HPF) 3-5 H Ur Epithelial Cells (NONE,FEW) FEW Urine Bacteria (NEG/NONE) RARE H Urine Hemoglobin (NEG) TRACE-INTACT H Urine Glucose (N MG/DL) >=1000 H Assessment/Plan Assessment/Plan A: POD2 sp I&D scrotal/perineal abscess with improving pain/swelling scrotum, with uncontrolled DM now on meds, with chest pain relieved with belching- likeyl gas. P: DM meds watch FS OOB, ambulate no bm: miralax maalox. if CP persists, may need ekg,trops dsg change cont abx dc planning Core Measures/Miscellaneous Alcaraz Catheter Date In: 03/01/17 Venous Thromboembolism VTE Risk Factors: Surgery VTE Contraindications: No Contraindications VTE Diagnosis: No VTE Type: NONE VTE Confirmed by (Test): NONE Beta Noel Is Beta Noel a Home Med? No Antibiotics Is Patient on Antibiotics? Yes If Yes: infection
--- NOTE | 2017-03-03 09:21 | PN- Pulmonary ---
Subjective HPI/Critical Care Issues: Still in pain afebrile fatigued mild spasm upper back releives when he stretches Scrotum painful upon ambulating Sugars less than 250 Just started oral hypoglycemics Objective Current Medications: Current Medications Sig/Jayce Start time Last Medication Dose Route Stop Time Status Admin Acetaminophen 650 MG Q6PRN PRN 03/01 2100 AC PO Al Hydroxide/Mg 30 ML Q4-6 PRN PRN 03/03 0800 AC Hydroxide PO Ampicillin Sodium/ 1,500 MG Q6 03/01 2359 AC 03/03 Sulbactam Sodium IV 0558 Sodium Chloride 100 ML Dextrose/Sodium 1,000 ML .Q10H 03/01 2100 DC 03/02 Chloride IV 0947 Docusate Sodium 100 MG BID 03/01 2200 AC 03/02 PO 2206 Heparin Sodium 5,000 UNIT Q8 03/02 0600 AC 03/03 (Porcine) SC 0449 Insulin Aspart 0 TIDAC 03/03 0800 AC SC Insulin Human Regular 6 UNITS .STK-MED ONE 03/02 1215 DC IV 03/02 1216 Insulin Human Regular 0 TIDAC/HS 03/01 2100 DC 03/02 SC 2206 Metformin HCl 850 MG 0800,1700 / 0800 AC 03/03 PO 0811 Morphine Sulfate 2 MG Q4P PRN 03/01 2100 AC 03/01 IV 2350 Ondansetron HCl 4 MG Q8P PRN 03/01 2100 AC IV Oxycodone/ 1 TAB Q6P PRN 03/01 2100 AC 03/02 Acetaminophen PO 1624 Oxycodone/ 2 TAB Q6P PRN / 2100 AC 03/03 Acetaminophen PO 0449 Patient Medication 1 ED .STK-MED ONE 03/02 1343 DC Teaching ED 03/02 1344 Polyethylene Glycol 17 GM DAILY 03/03 1000 DC PO Polyethylene Glycol 17 GM DAILY 03/03 0815 AC PO Polyethylene Glycol 17 GM DAILY 03/03 0800 DC PO Sitagliptin Phosphate 50 MG DAILY 03/03 1000 AC PO Vital Signs & I&O Last 24 Hrs of Vitals and I&O: Vital Signs Date Time Temp Pulse Resp B/P B/P Pulse O2 O2 Flow FiO2 Mean Ox Delivery Rate 03/03 0750 98.0 74 16 140/64 96 Room Air 03/03 0004 99.0 84 16 154/88 95 Room Air 03/02 1530 97.8 81 16 118/78 93 Room Air Intake & Output 03/03 1600 06/ 0800 06/ 0000 Intake Total 200 370 Output Total 1100 Balance 200 -730 Intake, IV 200 130 Intake, Oral 240 Output, Urine 1100 Impression/Plan Impression/Plan Impression/Plan: Physical Exam: gen; obese. uncomfortle.l no distress heent; anicteric, mmm, eoi chest; rrr, clear bilaterally abdomen, obese, soft, nt, reducible umbilical hernia. scrotum. Dressing noted IMPRESSION PT with morbid obesity with scrotal abcess s/p I and d with previous history of DM non compliant has DM Uncontrolled Obesity Scrotal abscess s/p I and D with strep REC Start metformin 875 bid Januvia 100 po daily (please give extra 50 this am script for glucometer, strips and lancets given to the patient Pt to call me if sugars are high and we can start sliding scale coverage wiht inulin pen with novolog Strict diet Compliance stressed and pt aware to call me Diabetic diet
[2017-03-03 16:00] VITALS: BP 130/68
[2017-03-03] MEDS ORDERED: AUGMENTIN 875-1 EACH PO (17:05)
[2017-03-03] MEDS ORDERED: PERCOCET 5-3251 EACH PO (17:05)
[2017-03-03] MEDS ORDERED: METFORMIN HCL850 M1 PO (17:16)
[2017-03-03] MEDS ORDERED: JANUVIA100 M1 PO (17:16)
[2017-03-03] MEDS ORDERED: HUMALOG KW100 UNIT/1 SQ (17:29)
[2017-03-04 00:21] VITALS: BP 152/70
[2017-03-04 08:47] VITALS: BP 156/68
--- NOTE | 2017-03-04 11:09 | PN- General Surgery ---
See Addendum Subjective Subjective: Pain and swelling has improved per patient, still getting serous discharge from the scrotal wound. Denies fever chills or sweats Objective Vital Signs and I&Os Vital Signs Date Time Temp Pulse Resp B/P B/P Pulse O2 O2 Flow FiO2 Mean Ox Delivery Rate 03/04 0847 97.5 75 20 156/68 95 Room Air 03/04 0021 98.5 81 20 152/70 96 Room Air / 1600 98.0 70 20 130/68 95 Room Air Intake & Output 03/04 1600 08 0800 06/08 0000 / 1600 / 0800 06/ 0000 Intake Total 568 983 6965 200 370 Output Total 1100 Balance 787 196 9872 200 -730 Intake, IV 200 100 150 200 130 Intake, Oral 331 558 9736 240 Number 0 1 Bowel Movements Output, Urine 1100 Physical Exam: Well-developed well-nourished, 18 O 3, no acute distress Abdomen soft nontender nondistended. Scrotal wound has packing in place, mild to moderate amount of serous discharge, no odor Scrotum is mildly tender to palpation, improved per patient, swelling has decreased, no erythema, no crepitus Results Last 48 Hours of Labs: Laboratory Tests 03/02 1310 Chemistry Hemoglobin A1c (4.2 - 5.8 %) 11.9 H Assessment/Plan Assessment/Plan POD 3 sp I&D scrotal/perineal abscess with improving pain/swelling scrotum, with uncontrolled DM Preliminary culture is beta strep group B, sensitivities to follow, discharged after culture reports are final to ensure proper antibiotic usage as outpatient Diabetic medications adjusted yesterday, on , metformin and NovoLog sliding scale, sugars remain elevated, we will continue to monitor and discussed with Dr. Sykes if sugars remained high OOB, ambulate had BM yesterday, cont miralax, maalox. dsg change cont abx dc planning after final culture. Core Measures/Miscellaneous Alcaraz Catheter Date In: 03/01/17 Venous Thromboembolism VTE Risk Factors: Surgery VTE Contraindications: No Contraindications VTE Diagnosis: No VTE Type: NONE VTE Confirmed by (Test): NONE Beta Noel Is Beta Noel a Home Med? No Antibiotics Is Patient on Antibiotics? Yes If Yes: infection
--- NOTE | 2017-03-04 13:48 | PN- Pulmonary ---
Subjective HPI/Critical Care Issues: Pain and swelling has improved per patient, still getting serous discharge from the scrotal wound. Denies fever chills or sweats Objective Current Medications: Current Medications Sig/Jayce Start time Last Medication Dose Route Stop Time Status Admin Acetaminophen 650 MG Q6PRN PRN 03/01 2100 AC PO Al Hydroxide/Mg 30 ML Q4-6 PRN PRN 03/03 0800 AC 03/03 Hydroxide PO 1110 Ampicillin Sodium/ 1,500 MG Q6 03/01 2359 AC 03/04 Sulbactam Sodium IV 1305 Sodium Chloride 100 ML Bisacodyl 10 MG ONCE ONE 03/03 1800 DC 03/03 MI 03/03 1801 1833 Docusate Sodium 100 MG BID 03/01 2200 AC 03/04 PO 0900 Heparin Sodium 5,000 UNIT Q8 03/02 06 AC 03/04 (Porcine) SC 0545 Insulin Aspart 0 TIDAC 03/03 0800 AC 03/04 SC 1306 Metformin HCl 850 MG 0800,1700 03/03 0800 AC 03/04 PO 0900 Morphine Sulfate 2 MG Q4P PRN 03/01 2100 AC 03/01 IV 2350 Ondansetron HCl 4 MG Q8P PRN 03/01 2100 AC IV Oxycodone/ 1 TAB Q6P PRN 03/01 2100 AC 03/04 Acetaminophen PO 0900 Oxycodone/ 2 TAB Q6P PRN / 2100 AC 03/03 Acetaminophen PO 2158 Polyethylene Glycol 17 GM DAILY 03/03 0815 AC 03/04 PO 1305 Sitagliptin Phosphate 100 MG DAILY 03/04 1000 AC 03/04 PO 1306 Sitagliptin Phosphate 50 MG ONCE ONE 03/03 1415 DC 03/03 PO 03/03 1416 1636 Sitagliptin Phosphate 50 MG DAILY 03/03 1000 DC / PO 1110 Vital Signs & I&O Last 24 Hrs of Vitals and I&O: Vital Signs Date Time Temp Pulse Resp B/P B/P Pulse O2 O2 Flow FiO2 Mean Ox Delivery Rate 03/04 0847 97.5 75 20 156/68 95 Room Air /08 0021 98.5 81 20 152/70 96 Room Air /07 1600 98.0 70 20 130/68 95 Room Air Intake & Output 03/04 1600 /08 0800 06/08 0000 Intake Total 650 550 Output Total Balance 650 550 Intake, IV 200 100 Intake, Oral 450 450 Number 0 1 Bowel Movements Impression/Plan Impression/Plan Impression/Plan: Physical Exam: gen; obese. uncomfortle.l no distress heent; anicteric, mmm, eoi chest; rrr, clear bilaterally abdomen, obese, soft, nt, reducible umbilical hernia. scrotum. Dressing noted IMPRESSION PT with morbid obesity with scrotal abcess s/p I and d with previous history of DM non compliant has DM Uncontrolled Obesity Scrotal abscess s/p I and D with strep REC Metformin 875 bid Januvia 100 po daily (please give extra 50 this am script for glucometer, strips and lancets given to the patient Pt to be dcd on shortacting insulin with sliding scale as discussed with the surg PA yesterday Pt to call me if sugars are high Strict diet Compliance stressed and pt aware to call me Diabetic diet
--- NOTE | 2017-03-10 10:02 | Surgical Discharge Summary ---
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 Been off medications for both for over 1yr now. History of MRSA: No History of VRE: No History of CDIFF: No Isolation History: Standard Surgical History Pertinent Surgical History: scrotal abscess drainage Psychosocial History Where Do You Live? Home Who Do You Live With? Spouse Services at Home: None What is Your Primary Language? Yakut ETOH Use: occasional use Review of Systems: not assessed at d/c Hospital Course Course Attending Physician: LUIS TINEO MD Primary Care Physician: BECKY REGAN MD Hospital Course: admitted after drainage of scrotal abscess for iv abx and wound cares. pain and swelling resolved over 48 hours. cultures show sensitive organisms. discharged home on oral abx and local wound cares Allergies: Coded Allergies: No Known Allergies (02/26/17) Significant Procedures: drainage scrotal abscess Disposition Summary Disposition Principal Diagnosis: scrotal abscess Additional Diagnosis: diabetes mellitus Discharge Disposition: home health services Discharge Instructions General Discharge Information Code Status: Full Code Patient's Diet: diabetic Patient's Activity: self limited Follow-Up Instructions/Appts: two weeks Medications at Discharge Discharge Medications: Continue taking these medications: Diclofenac Sodium (Diclofenac Sodium) 75 MG TABLET.DR 1 Tablet ORAL TWICE DAILY as needed for PAIN Qty = 14 Comments: NOT TAKEN IN HOSPITAL Start taking the following new medications: Metformin HCl (Metformin HCl) 850 MG TABLET 850 Milligram ORAL 0800,1700 Days = 30 No Refills Comments: Last Taken: 03/04/17 Time: 10:00 AM Sitagliptin Phosphate (Januvia) 100 MG TABLET 100 Milligram ORAL DAILY Days = 30 No Refills Comments: Last Taken: 03/04/17 Time: 10:00 AM Oxycodone HCl/Acetaminophen (Percocet 5-325 MG Tablet) 5 MG-325 MG TABLET 1-2 Tablet ORAL Q4-6H as needed for PAIN Qty = 36 No Refills Comments: Last Taken: 03/04/17 Time: 9:00 AM Amoxicillin/Potassium Clav (Augmentin 875-125 Tablet) 875 MG-125 MG TABLET 1 Tablet ORAL TWICE DAILY Days = 10 No Refills Comments: UNASYN GIVEN IN HOSPITAL IN PLACE Last Taken: 03/04/17 Time: 6:00 AM Insulin Lispro (Humalog Kwikpen U-100) 100 UNIT/ML INSULN.PEN 4 Units SUB-Q As Directed Days = 30 No Refills Instructions: take premeal 2x/day, before breaskfast and before dinner FS 200-250: 4 units FS 251-300: 6 units FS 301-400: 8 units FS >400: 10 units Comments: Last Taken: 03/04/17 Time: 12:00 PM Copies To: JASS RASHEED,BECKY Gutierrez
== END 2017-03-04 15:15 | disposition home health service (06) | DRG 728 ==
LOC: ERH 12:36 → ER-OR 12:51 → PACUH 18:41 → 1NO 18:41 → ENRESERV 21:10 → ENTRNSPT 21:18 → 1NO 21:39 → CMPTRNSPT 22:28 → ENPENDDIS 03-04 14:02 → 1NO 03-04 15:15
PROVIDERS: Emergency Medicine; Physician Assistant Surgical; ADMIT Surgery
PROC: 0W9M0ZZ Drainage of Male Perineum, Open Approach (ICD-10-PCS; principal; 2017-03-01)
DX: N49.2 Inflammatory disorders of scrotum (principal); E11.65 Type 2 diabetes mellitus with hyperglycemia; I10 Essential (primary) hypertension; Z87.891 Personal history of nicotine dependence; Z79.84 Long term (current) use of oral hypoglycemic drugs; Z91.14 Patient's other noncompliance with medication regimen; E66.9 Obesity, unspecified; Z68.33 Body mass index [BMI] 33.0-33.9, adult
CPT/HCPCS: 1NSP; 87070; 87075; 87184; 87205; 36415; 74177; 81001; 82436; 87040; 87086; 87088; 87147; 93005; 93010; 96374; 96375; C9399; J0131; J0713; J1100; J1170; J1644; J1815; J2250; J2405; J3010; J3370; J7040; J7042